=== PATIENT | male | born 1955 | race Caucasian/White ===

== ENCOUNTER 2017-02-26 12:17 | Emergency (ER) | payer BC, OTHER ==
[~2017-02-26] VITALS: Ht 175.3 cm; Wt 85.0 kg
[~2017-02-26 12:17] MED LIST: BRILINTA90 MG PO; LIPITOR 40MG TA40 MG PO; LOPID 600M600 MG/TAB PO; LOPRESSOR 225 MG/TAB PO; LORTAB 5/500 501 TAB PO; NITROSTAT0.4 MG/TAB SL; NO HOME MEDICATIONS; PRILOSEC 20MG20 MG PO
[2017-02-26 12:19] VITALS: TEMP 99.4
[2017-02-26 12:55] LABS: BASO % 0.2 % (0.0-2.0); EOS # 0.1 (0.0-0.7); EOS % 0.4 % (0-4.0); GRAN # 16.9 (1.4-6.5); GRAN % 87.7 % (42.2-75.2); HEMATOCRIT 42.6 % (42.0-52.0); HEMOGLOBIN 14.9 g/dl (13.5-18.0); LYMPH # 1.4 (1.2-3.4); LYMPH % 7.2 % (20.0-51.0); MEAN CELL VOLUME 96 fl (80.0-100.0); MEAN CORPUSCULAR HEMOGLOBIN 33 pg (27.0-31.0); MEAN CORPUSCULAR HGB CONC 35 g/dl (33.0-37.0); MONO # 0.8 (0.1-0.6); PLATELET COUNT 183 K/mm3 (130-400); RED BLOOD COUNT 4.46 M/mm3 (4.20-5.60); REDCELL DISTRIBUTION WIDTH-CV 12.3 % (11.5-14.5); WHITE BLOOD COUNT 19.3 K/mm3 (4.8-10.8)
[2017-02-26 13:21] LABS: ADJUSTED CALCIUM 8.8 mg/dL (8.4-10.2); ALANINE AMINOTRANSFERASE 27 U/L (21-72); ALKALINE PHOSPHATASE 124 U/L (50-136); ANION GAP 13 mmol/L (7-16); BILIRUBIN,TOTAL 0.9 mg/dL (0.0-1.0); BLOOD UREA NITROGEN 11 mg/dL (9-20); C-REACTIVE PROTEIN 1.9 mg/dL (0.0-0.9); CALCIUM 8.8 mg/dL (8.4-10.2); CARBON DIOXIDE 23 mmol/L (22-30); CHLORIDE 101 mmol/L (98-107); CREATININE, serum 0.81 mg/dL (0.66-1.25); GLUCOSE 156 mg/dL (74-106); SODIUM 137 mmol/L (137-145)
[2017-02-26 13:27] LABS: B-TYPE NATRIURETIC PEPTIDE 315 pg/mL (0-125)
[2017-02-26 13:32] LABS: TROPONIN-I < 0.012 ng/mL (0.000-0.034)
[2017-02-26] MEDS ORDERED: NORCO 325 MG-51 TAB PO (13:59)
[2017-02-26] MEDS ORDERED: LEVAQUIN 5500 MG/TA1 PO (13:59)
[2017-02-26] MEDS ORDERED: VENTOLIN0.09 MG IH (13:59)
[2017-02-26] MEDS ORDERED: PREDNISONE20 MG PO (13:59)
[2017-02-26 14:45] VITALS: BP 111/62; PULSE 65
== END 2017-02-26 14:47 | disposition home or self-care (01) ==
LOC: COL.ER 12:17
PROVIDERS: Emergency Medicine
DX: J18.9 Pneumonia, unspecified organism (principal); J20.9 Acute bronchitis, unspecified; I10 Essential (primary) hypertension; J45.909 Unspecified asthma, uncomplicated; I25.10 Atherosclerotic heart disease of native coronary artery without angina pectoris; F17.210 Nicotine dependence, cigarettes, uncomplicated; Z95.5 Presence of coronary angioplasty implant and graft
CPT/HCPCS: J7512

== ENCOUNTER 2021-08-31 16:13 | Outpatient (RCR) | payer BC, OTHER ==
[~2021-08-31 16:13] MED LIST changes: +LEVAQUIN 5500 MG/TA1 PO; +NORCO 325 MG-51 TAB PO; +PREDNISONE20 MG PO; +VENTOLIN0.09 MG IH
== END 2021-09-09 | disposition home or self-care (01) ==
LOC: COL.CR
DX: I21.3 ST elevation (STEMI) myocardial infarction of unspecified site (principal)

== ENCOUNTER 2021-09-18 21:29 | Emergency (ER) | payer BC, OTHER ==
[~2021-09-18] VITALS: Ht 175.3 cm; Wt 81.8 kg
[2021-09-18 23:44] VITALS: TEMP 99.1
[2021-09-18 23:52] VITALS: BP 132/70; PULSE 76
== END 2021-09-18 23:52 | disposition home or self-care (01) ==
LOC: COL.ER 21:29
DX: J11.1 Influenza due to unidentified influenza virus with other respiratory manifestations (principal); I25.10 Atherosclerotic heart disease of native coronary artery without angina pectoris; E78.5 Hyperlipidemia, unspecified; I10 Essential (primary) hypertension; K21.9 Gastro-esophageal reflux disease without esophagitis; Z79.899 Other long term (current) drug therapy; Z79.02 Long term (current) use of antithrombotics/antiplatelets; Z20.822 Contact with and (suspected) exposure to COVID-19

== ENCOUNTER 2024-06-17 07:52 | Day surgery (SDC) | payer MEDICARE, BC, OTHER ==
[2024-06-17] VITALS (8 sets, daily range): BP systolic 128–163; BP diastolic 56–83; PULSE 45–52; TEMP 98.2
[~2024-06-17] VITALS: Ht 175.3 cm; Wt 86.9 kg
[~2024-06-17 07:52] MED LIST changes: +00186-0370-20 IH; +00186-0372-20 IH; +ASPIRIN 81M81 MG/TA2 PO; +EFFIENT10 MG PO; +LEXAPRO 10MG10 MG PO; +LIPITOR 80MG80 MG PO; +PEPCID40 MG PO; +PERCOCET 325 MG1 TA2 PO; +PROAIR HFA0.09 MG/AC IH; +TOPROL XL 50MG50 MG PO; +TYLENOL 8 HR PO; +TYLENOL PM EXTR1 TA1 PO
[2024-06-17] MEDS ORDERED: 1/2 NS 1,000 ML IV SCH (08:00)
[2024-06-17 08:48] LABS: HEMOGLOBIN 15.3 g/dl (13.5-18.0); MEAN CELL VOLUME 99 fl (80.0-100.0); MEAN CORPUSCULAR HEMOGLOBIN 34 pg (27-31); MEAN CORPUSCULAR HGB CONC 34 g/dl (33.0-37.0); MEAN PLATELET VOLUME 11.8 fl (7.4-10.4); PLATELET COUNT 160 K/mm3 (130-400); RED BLOOD COUNT 4.54 M/mm3 (4.20-5.60); REDCELL DISTRIBUTION WIDTH-CV 12.2 % (11.5-14.5)
[2024-06-17 09:00] LABS: INR 1.1 (0.8-3.0); PROTHROMBIN TIME 11.5 SECONDS (9.7-12.8)
[2024-06-17 09:02] LABS: PARTIAL THROMBOPLASTIN TIME 39.6 SECONDS (26.0-37.0)
[2024-06-17 09:03] LABS: CALCIUM 9.4 mg/dL (8.4-10.2); CREATININE, serum 0.94 mg/dL (0.72-1.25); POTASSIUM 4.7 mEq/L (3.5-4.5)
[2024-06-17] MEDS ORDERED: DAILY MULTIPLE1 T18 PO (09:15)
[2024-06-17] MEDS ORDERED: Verapamil 2.5 MG/ML 2 ML VIAL IA SCH (10:33)
[2024-06-17] MEDS ORDERED: Heparin 1,000 UNITS/ML 10 ML Multi-Dose VIAL IA SCH (10:33)
[2024-06-17] MEDS ORDERED: Nitroglycerin 100 MCG/ML (Cath Lab) 10 ML VIAL IA SCH (10:34)
[2024-06-17] MEDS ORDERED: Heparin 1,000 UNITS/ML 10 ML Multi-Dose VIAL IV SCH (10:34)
[2024-06-17] MEDS ORDERED: Midazolam 2 MG/2 ML VIAL IV SCH (11:08)
[2024-06-17] MEDS ORDERED: fentaNYL 50 MCG/ML 2 ML VIAL IV SCH (11:09)
[2024-06-17] MEDS ORDERED: Iohexol 350 - 100 ML VIAL INCOR ONE (11:10)
--- NOTE | 2024-06-17 14:42 | NUR ---
PT TOLERATED RECOVERY PERIOD WELL. VS REMAINED WITHIN NORMAL LIMITS. PT FREE FROM ACUTE CONCERNS AND COMPLAINTS UPON DISCHARGE. RIGHT RADIAL DRESSING REMAINED CLEAN DRY AND INTACT. RIGHT RADIAL ACCESS SITE REMAINED FREE FROM SIGNS OF BLEEING AND HEMATOMA. PT ASSISTED TO MAIN LOBBY VIA WHEELCHAIR. IV DISCONTINUED. PT VERBALIZED UNDERSTANDING OF DISCHARGE INSTRUCTIONS.
== END 2024-06-17 14:44 | disposition home or self-care (01) ==
LOC: COL.CAR 07:52
PROVIDERS: Internal Medicine Cardiovascular Disease
DX: I25.10 Atherosclerotic heart disease of native coronary artery without angina pectoris (principal); I10 Essential (primary) hypertension; J44.9 Chronic obstructive pulmonary disease, unspecified; K21.9 Gastro-esophageal reflux disease without esophagitis; E78.2 Mixed hyperlipidemia; I34.0 Nonrheumatic mitral (valve) insufficiency; F17.210 Nicotine dependence, cigarettes, uncomplicated; Z79.82 Long term (current) use of aspirin; Z95.5 Presence of coronary angioplasty implant and graft
CPT/HCPCS: J1644; J2250; J3010; Q9967